=== PATIENT | female | born 2000 | race American Indian/Alaskan Native ===

== ENCOUNTER 2020-11-03 04:05 | Inpatient (IN) | payer MEDICAID ==
[2020-11-03] MEDS ORDERED: ePHEDrine SULFATE 50 MG/1 ML INJ IV PRN (04:56)
[2020-11-03] MEDS ORDERED: MINERAL OIL 30 ML ORAL LIQD PO PRN (04:56)
[2020-11-03] MEDS ORDERED: TERBUTALINE 1 MG/1 ML INJ SUB-Q PRN (04:56)
[2020-11-03] MEDS ORDERED: AMPICILLIN/NS 2 GM/100 ML 2 GM/100 ML BAG IV ONE (04:56)
[2020-11-03] MEDS ORDERED: MAGNESIUM SULFATE 4 GM/100 ML BAG IV ONE (04:56)
[2020-11-03] MEDS ORDERED: NALOXONE 0.4 MG/1 ML INJ IV PRN (04:56)
[2020-11-03] MEDS ORDERED: hydrALAZINE 20 MG/1 ML INJ IV PRN (04:56)
[2020-11-03] MEDS ORDERED: ONDANSETRON 4 MG/2 ML INJ IV PRN (04:56)
[2020-11-03] MEDS ORDERED: miSOPROStol 200 MCG TAB PR PRN (04:56)
[2020-11-03] MEDS ORDERED: BUTORPHANOL 2 MG/1 ML INJ IV PRN (04:56)
[2020-11-03] MEDS ORDERED: LIDOCAINE (2%) 20 MG/1 ML VIAL 20 ML MDV INFILTRATI ONE ×2 (04:56→09:35)
[2020-11-03] MEDS ORDERED: MAGNESIUM SULFATE 40GM/1000ML 40 GM/1,000 ML BAG IV SCH (05:00)
[2020-11-03] MEDS ORDERED: OXYTOCIN DRIP 30 UNITS/500 ML BAG IV SCH ×2 (05:00)
[2020-11-03] MEDS ORDERED: LACTATED RINGERS 1,000 ML IV SCH ×2 (05:00)
[2020-11-03] MEDS ORDERED: CALCIUM GLUCONATE 1000 MG/10 ML INJ IV ONE (05:00)
[2020-11-03 05:29] LABS: Hematocrit 39.8 % (30.3-42.9); Hemoglobin 13.3 gm/dl (10.1-14.3); Mean Corpuscular HGB Conc 34 % (30-34); Mean Corpuscular Volume 90 fl (79-97); Platelet Count 178 K/mm3 (140-440); Red Blood Count 4.43 M/mm3 (3.65-5.03); Red Cell Distribution Width 13.1 % (13.2-15.2)
[2020-11-03 05:58] LABS: Alanine Aminotransferase 15 units/L (7-56); Uric Acid 5.4 mg/dL (3.5-7.6)
[2020-11-03 07:06] LABS: Bilirubin,Urine NEG (Negative); Blood,Urine SM (Negative); Color,Urine Straw (Yellow); Mucus,Urine FEW /HPF; Urobilinogen,Urine < 2.0 mg/dL (<2.0)
[2020-11-03] MEDS: fentaNYL 100 MCG/2 ML INJ IV PRN ×2 (07:16→10:26)
[2020-11-03] MEDS ORDERED: AMPICILLIN/NS 1 GM/50 ML 1 GM/50 ML BAG IV SCH (08:58)
--- NOTE | 2020-11-03 10:51 | History and Physical Report ---
History of Present Illness Date of examination: 11/03/20 Date of admission: 11/03/20 04:57 Chief complaint: My water broke History of present illness: Patient is a 20-year-old 1 para 0 who presents at 39-6/7 weeks with complaint of rupture of membranes and active labor patient was found to be grossly ruptured and is 3 cm dilated. Her course was complicated by a transfer of care to [facility] at 19 weeks. She is GBS positive. On admission today she is found to have elevated blood pressures. 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 Family/Genetic History: none Social history: single - Obstetrical History Expected Date of Delivery: 11/04/20 Actual Gestation: 39 Week(s) 6 Day(s) : 1 Number of Living Children: 0 Medications and Allergies Allergies Allergy/AdvReac Type Severity Reaction Status Date / Time No Known Allergies Allergy Verified 11/03/20 05:05 Home Medications Medication Instructions Recorded Confirmed Last Taken Type Vit-Fe Fumar-FA [ 1 tab PO QDAY 11/03/20 11/03/20 11/02/20 18:00 History Vitamin] Active Meds: Active Medications Butorphanol Tartrate (Stadol) 2 mg IV Q2H PRN PRN Reason: Pain , Severe (7-10) Ephedrine Sulfate (Ephedrine Sulfate) 10 mg IV Q2M PRN PRN Reason: Hypotension Fentanyl (Sublimaze) 100 mcg IV Q2H PRN PRN Reason: Pain,Severe (7-10) LABOR PAIN Last Admin: 11/03/20 10:26 Dose: 100 mcg Documented by: Hydralazine HCl (Apresoline) 5 mg IV Q30MIN PRN PRN Reason: Hypertension Last Admin: 11/03/20 09:25 Dose: 5 mg Documented by: Oxytocin/Sodium Chloride (Pitocin/Ns 30 Unit/500ml) 30 units in 500 mls @ 2 mls/hr IV TITR KELVIN; Protocol Last Titration: 11/03/20 08:41 Dose: 4 ml/hr, 4 mls/hr Documented by: Lactated Ringer's (Lactated Ringers) 1,000 mls @ 125 mls/hr IV DIRECT KELVIN Last Admin: 12/07/20 05:31 Dose: 125 mls/hr Documented by: Oxytocin/Sodium Chloride (Pitocin/Ns 30 Unit/500ml) 30 units in 500 mls @ 40 mls/hr IV TITR KELVIN; Protocol Ampicillin Sodium (Ampicillin/Ns 1 Gm/50 Ml) 1 gm in 50 mls @ 100 mls/hr IV Q4HR KELVIN; Protocol Last Admin: 11/03/20 09:01 Dose: 100 mls/hr Documented by: Magnesium Sulfate (Magnesium Sulfate 40gm/1000ml) 40 gm in 1,000 mls @ 50 mls/hr IV DIRECT KELVIN Last Admin: 11/03/20 06:05 Dose: 2 gm/hr, 50 mls/hr Documented by: Mineral Oil (Mineral Oil) 30 ml PO QHS PRN PRN Reason: Constipation Misoprostol (Cytotec) 800 mcg NV ONCE PRN PRN Reason: Uterine Bleeding Naloxone HCl (Naloxone) 0.1 mg IV Q2MIN PRN PRN Reason: Res Rate </= 8 or 02 SAT < 92% Ondansetron HCl (Zofran) 4 mg IV Q8H PRN PRN Reason: Nausea And Vomiting Terbutaline Sulfate (Brethine) 0.25 mg SUB-Q ONCE PRN PRN Reason: Hyperstimulation/Hypertonicity Review of Systems All systems: negative Constitutional: fatigue Genitourinary: leakage of fluid, contractions - Vital Signs Vital signs: Vital Signs Pulse BP 63 186/105 11/03/20 04:37 11/03/20 04:37 Temp Pulse Resp BP Pulse Ox 99.2 F 109 H 18 133/66 100 11/03/20 04:38 11/03/20 10:41 11/03/20 04:38 11/03/20 10:41 11/03/20 10:41 - Physical Exam Breasts: Positive: deferred Cardiovascular: Regular rate, Normal S1, Normal S2 Lungs: Positive: Clear to auscultation, Normal air movement Abdomen: Positive: normal appearance, soft, normal bowel sounds Genitourinary (Female): Positive: normal external genitalia, normal perenium Vulva: both: normal Vagina: Positive: normal moisture Uterus: Positive: normal size, normal contour Extremities: Positive: normal - Obstetrical Cervical Dilatation: 3 Cervical Effacement Percentage: 80 station: 1 Uterine Contraction Pattern: Irregular Uterine Tone Measurement Phase: Contraction Uterine Contraction Intensity: Moderate Results Result Diagrams: 11/03/20 05:10 11/03/20 05:10 Abnormal lab results 11/03/20 11/03/20 Range/Units 05:10 05:10 WBC 11.8 H (4.5-11.0) K/mm3 RDW 13.1 L (13.2-15.2) % Lactate Dehydrogenase 343 H (91-180) units/L All other labs normal. Assessment and Plan IUP at 39-6/7 weeks with spontaneous rupture of membranes and active labor. Will admit for labor and elevated blood pressure. We will begin magnesium for seizure prophylaxis and pitocin for contractions. Pt may have epidural when desires. Anticipate .
[2020-11-03] MEDS ORDERED: PROMETHAZINE 25 MG RECT SUPP PR PRN (11:14)
[2020-11-03] MEDS ORDERED: BENZOCAINE/MENTHOL 20/0.5% TOP SPRAY 56 GM TP PRN (11:14)
[2020-11-03] MEDS ORDERED: diphenhydrAMINE 25 MG CAP PO PRN (11:14)
[2020-11-03] MEDS ORDERED: MAGNESIUM HYDROXIDE (MOM) ORAL LIQD UDC PO PRN (11:14)
[2020-11-03] MEDS ORDERED: WITCH HAZEL/ GLYCERIN PAD TP PRN (11:14)
[2020-11-03] MEDS ORDERED: LANOLIN/ZINC/DIMETHICONE (LANSINOH) 7 GM TP PRN (11:14)
--- NOTE | 2020-11-03 11:14 | Procedure Note ---
OB Delivery Note - Delivery Date of Delivery: 11/03/20 Surgeon: RIKY CHAHAL Estimated blood loss: other (400cc) - Vaginal Delivery presentation: vertex Delivery position: OA Intrapartum events: PROM->1hr before delivery, meconium (light), preeclampsia Delivery induction: none Delivery augmentation: pitocin Delivery monitor: external FHT, external uterine Route of delivery: Delivery placenta: spontaneous Delivery cord: 3 umbilical vessels Episiotomy: none Delivery laceration: 2nd degree Delivery repair: vicryl Anesthesia: local Delivery comments: Viable female delivered over intact perineum with mouth and nose suctioned on the perineum. had spontaneous cry and was placed on maternal abdomen. Cord was clamped and cut when done pulsating. Placenta was delivered spontaneously and intact. Second-degree laceration was repaired with 2-0 Vicryl. There was excellent hemostasis at end the procedure. Weight of the was 7 pounds, 3165 g. Her Apgars were 8 and 9 - A at 1 minute: 8 at 5 minutes: 9 Gender: Female (3165 grams/ 7 pounds)
[2020-11-03] MEDS ORDERED: IBUPROFEN 600 MG TAB PO SCH (12:00)
[2020-11-03] MEDS: NIFEdipine XL 60 MG TAB PO SCH (14:33)
[2020-11-03] MEDS ORDERED: DOCUSATE SODIUM 100 MG CAP PO SCH (22:00)
[2020-11-03] MEDS: HYDROcodone/ACETAMINOPHEN 5-325 MG TAB PO PRN (22:55)
[2020-11-04 01:37] LABS: Hematocrit 33.8 % (30.3-42.9); Hemoglobin 11.5 gm/dl (10.1-14.3)
[2020-11-04] MEDS: HYDROcodone/ACETAMINOPHEN 5-325 MG TAB PO PRN ×2 (05:14→22:15)
[2020-11-04] MEDS ORDERED: PRENATAL VIT27-FE FUMARATE-FOLIC ACID VIT TAB PO SCH (10:00)
[2020-11-04] MEDS: NIFEdipine XL 60 MG TAB PO SCH (10:39)
--- NOTE | 2020-11-04 11:38 | Progress Note ---
Assessment and Plan PPD 1 s/p . Doing well. Plan for transfer to mother baby after magnesium stopped. Will monitor blood pressure for 24 hours. Subjective - Subjective Date of service: 11/04/20 Interval history: Patient is a 20-year-old 1 para 0 who presents at 39-6/7 weeks with complaint of rupture of membranes and active labor patient was found to be grossly ruptured and is 3 cm dilated. Her course was complicated by a transfer of care to [facility] at 19 weeks. She is GBS positive. On admission today she is found to have elevated blood pressures. [facility] labs are pending Patient reports: appetite normal, voiding normally, pain well controlled, ambulating normally : doing well Objective - Vital Signs Latest vital signs: Vital Signs Temp Pulse Resp BP BP Pulse Ox 11/04/20 11:14 98.1 F 82 18 121/82 100 11/04/20 10:40 100 H 100 11/04/20 10:35 86 100 11/04/20 10:30 95 H 100 11/04/20 10:25 84 99 11/04/20 10:20 86 100 11/04/20 10:15 82 98 11/04/20 10:10 82 104/55 99 11/04/20 10:05 86 99 11/04/20 10:00 85 97 11/04/20 09:55 85 97 11/04/20 09:50 93 H 97 11/04/20 09:45 109 H 97 11/04/20 09:40 98 H 97 11/04/20 09:35 88 98 11/04/20 09:30 105 H 100 11/04/20 09:25 81 98 11/04/20 09:20 89 99 11/04/20 09:15 83 99 11/04/20 09:10 78 107/61 99 11/04/20 09:05 86 100 11/04/20 09:00 84 98 11/04/20 08:55 79 99 11/04/20 08:50 81 100 11/04/20 08:45 81 100 11/04/20 08:40 91 H 98 11/04/20 08:38 101 H 93 11/04/20 08:35 95 H 100 11/04/20 08:30 101 H 100 11/04/20 08:25 87 99 11/04/20 08:20 91 H 100 11/04/20 08:15 86 98 11/04/20 08:10 102 H 99 11/04/20 08:05 92 H 100 11/04/20 08:02 107 H 94 11/04/20 08:00 97.6 F 102 H 18 100 11/04/20 07:55 83 99 11/04/20 07:50 84 97 11/04/20 07:45 82 97 11/04/20 07:40 89 98 11/04/20 07:35 83 97 11/04/20 07:30 86 97 11/04/20 07:25 89 98 11/04/20 07:20 88 97 11/04/20 07:15 93 H 98 11/04/20 07:10 91 H 105/54 96 11/04/20 07:05 91 H 99 11/04/20 07:00 96 H 98 11/04/20 06:55 113 H 97 11/04/20 06:50 115 H 96 11/04/20 06:45 99 H 97 11/04/20 06:40 90 97 11/04/20 06:35 102 H 97 11/04/20 06:30 97 H 95 11/04/20 06:25 95 H 96 11/04/20 06:20 95 H 96 11/04/20 06:15 107 H 97 11/04/20 06:10 97 H 104/59 96 11/04/20 06:05 97 H 96 11/04/20 06:00 95 H 96 11/04/20 05:55 98 H 96 11/04/20 05:50 102 H 97 11/04/20 05:45 113 H 99 11/04/20 05:40 99 H 99 11/04/20 05:35 102 H 100 11/04/20 05:30 99 H 100 11/04/20 05:25 104 H 99 11/04/20 05:20 95 H 100 11/04/20 05:15 101 H 100 11/04/20 05:10 99 H 121/69 100 11/04/20 05:05 93 H 100 11/04/20 05:00 89 99 11/04/20 04:55 81 100 11/04/20 04:50 81 100 11/04/20 04:45 90 99 11/04/20 04:40 85 97 11/04/20 04:35 84 97 11/04/20 04:30 84 97 11/04/20 04:25 81 98 11/04/20 04:20 77 99 11/04/20 04:15 82 98 11/04/20 04:10 80 115/65 100 11/04/20 04:05 82 99 11/04/20 04:00 83 100 11/04/20 03:55 82 99 11/04/20 03:50 83 100 11/04/20 03:45 78 100 11/04/20 03:40 87 100 11/04/20 03:35 90 100 11/04/20 03:30 102 H 98 11/04/20 03:25 116 H 97 11/04/20 03:20 92 H 97 11/04/20 03:15 86 99 11/04/20 03:10 90 118/60 99 11/04/20 03:05 87 97 11/04/20 03:00 85 99 11/04/20 02:55 87 97 11/04/20 02:50 88 98 11/04/20 02:45 85 99 11/04/20 02:40 88 98 11/04/20 02:35 88 98 11/04/20 02:30 87 97 11/04/20 02:25 87 97 11/04/20 02:20 104 H 99 11/04/20 02:15 88 98 11/04/20 02:10 85 114/63 99 11/04/20 02:05 88 99 11/04/20 02:00 87 100 11/04/20 01:55 92 H 100 11/04/20 01:50 99 H 100 11/04/20 01:45 93 H 100 11/04/20 01:40 99 H 100 11/04/20 01:35 97 H 99 11/04/20 01:30 93 H 100 11/04/20 01:25 98 H 100 11/04/20 01:20 95 H 100 11/04/20 01:15 97 H 100 11/04/20 01:10 98 H 120/80 100 11/04/20 01:05 93 H 100 11/04/20 01:00 101 H 100 11/04/20 00:55 99 H 100 11/04/20 00:50 97 H 98 11/04/20 00:45 90 98 11/04/20 00:40 91 H 99 11/04/20 00:35 91 H 99 11/04/20 00:30 90 100 11/04/20 00:25 98 H 99 11/04/20 00:20 92 H 98 11/04/20 00:15 96 H 98 11/04/20 00:10 90 113/67 100 11/04/20 00:05 93 H 99 11/04/20 00:00 90 100 11/03/20 23:55 87 100 11/03/20 23:50 95 H 100 11/03/20 23:45 96 H 100 11/03/20 23:40 95 H 100 11/03/20 23:35 101 H 100 11/03/20 23:30 102 H 100 11/03/20 23:25 91 H 100 11/03/20 23:20 99 H 100 11/03/20 23:15 93 H 100 11/03/20 23:10 108 H 126/76 100 11/03/20 23:05 96 H 100 11/03/20 23:00 95 H 100 11/03/20 22:55 96 H 100 11/03/20 22:50 99 H 100 11/03/20 22:45 95 H 100 11/03/20 22:40 95 H 98 11/03/20 22:35 98 H 100 11/03/20 22:33 107 H 94 11/03/20 22:30 107 H 100 11/03/20 22:25 105 H 100 11/03/20 22:20 100 H 100 11/03/20 22:15 103 H 99 11/03/20 22:10 95 H 121/72 100 11/03/20 22:05 102 H 99 11/03/20 22:00 98 H 100 11/03/20 21:55 100 H 100 11/03/20 21:50 105 H 100 11/03/20 21:45 98.2 F 95 H 16 121/72 100 11/03/20 21:40 98 H 99 11/03/20 21:35 105 H 99 11/03/20 21:30 109 H 100 11/03/20 21:25 109 H 100 11/03/20 21:20 107 H 100 11/03/20 21:19 116 H 85 11/03/20 21:15 117 H 100 11/03/20 21:10 110 H 114/59 98 11/03/20 21:05 100 H 98 11/03/20 21:00 103 H 99 11/03/20 20:55 102 H 99 11/03/20 20:50 105 H 100 12 20:45 105 H 100 12 20:40 118 H 100 12 20:35 106 H 100 12 20:30 102 H 100 11/03/20 20:25 107 H 100 11/03/20 20:20 114 H 100 12 20:15 107 H 100 11/03/20 20:10 109 H 123/70 100 11/03/20 20:05 117 H 100 12 20:00 116 H 100 11/03/20 19:55 101 H 100 12 19:50 108 H 100 11/03/20 19:45 113 H 100 12 19:40 112 H 100 11/03/20 19:35 105 H 99 11/03/20 19:30 109 H 100 11/03/20 19:25 105 H 100 11/03/20 19:20 106 H 99 11/03/20 19:15 103 H 100 11/03/20 19:10 106 H 118/69 100 11/03/20 19:05 108 H 100 11/03/20 19:00 106 H 100 07 18:55 101 H 100 11/03/20 18:50 104 H 100 11/03/20 18:45 105 H 100 11/03/20 18:40 101 H 100 11/03/20 18:35 105 H 100 11/03/20 18:30 105 H 100 07 18:25 104 H 100 11/03/20 18:20 118 H 100 1207 18:15 110 H 100 11/03/20 18:10 110 H 130/83 100 11/03/20 18:05 107 H 99 11/03/20 18:00 105 H 100 11/03/20 17:55 106 H 100 11/03/20 17:50 106 H 100 1207 17:45 104 H 100 1207 17:40 104 H 100 12 17:35 116 H 100 11/03/20 17:30 107 H 100 1220 17:25 103 H 100 11/03/20 17:20 109 H 100 11/03/20 17:15 99 H 100 11/03/20 17:10 109 H 142/96 100 11/03/20 17:05 104 H 100 11/03/20 17:00 103 H 100 11/03/20 16:55 102 H 100 11/03/20 16:50 99 H 100 11/03/20 16:45 100 H 100 11/03/20 16:40 109 H 100 11/03/20 16:35 114 H 100 11/03/20 16:30 99 H 100 11/03/20 16:25 104 H 100 11/03/20 16:20 101 H 100 11/03/20 16:15 100 H 100 11/03/20 16:10 109 H 134/86 100 11/03/20 16:05 101 H 100 11/03/20 16:00 99 H 100 11/03/20 15:55 102 H 100 11/03/20 15:50 95 H 100 11/03/20 15:45 102 H 100 11/03/20 15:40 111 H 99 11/03/20 15:37 98.9 F 16 11/03/20 15:35 106 H 100 11/03/20 15:30 99 H 100 11/03/20 15:25 106 H 100 11/03/20 15:20 99 H 100 11/03/20 15:15 103 H 100 11/03/20 15:10 100 H 141/87 100 11/03/20 15:05 103 H 100 11/03/20 15:00 101 H 100 11/03/20 14:55 102 H 100 11/03/20 14:50 105 H 100 11/03/20 14:45 98 H 100 11/03/20 14:40 102 H 100 11/03/20 14:35 99 H 99 11/03/20 14:30 105 H 100 11/03/20 14:25 101 H 100 11/03/20 14:20 97 H 100 11/03/20 14:15 97 H 100 11/03/20 14:10 110 H 143/93 100 11/03/20 14:05 109 H 100 11/03/20 14:00 103 H 100 11/03/20 13:55 103 H 100 11/03/20 13:50 104 H 100 11/03/20 13:45 101 H 100 11/03/20 13:40 100 H 100 11/03/20 13:35 102 H 100 11/03/20 13:30 114 H 100 11/03/20 13:25 102 H 100 11/03/20 13:20 101 H 100 11/03/20 13:15 98 H 100 11/03/20 13:10 110 H 150/78 100 11/03/20 13:05 103 H 100 11/03/20 13:00 100 H 100 11/03/20 12:55 102 H 100 11/03/20 12:50 98 H 100 11/03/20 12:45 98 H 100 11/03/20 12:40 96 H 100 11/03/20 12:35 97 H 100 11/03/20 12:30 99 H 100 11/03/20 12:25 92 H 100 11/03/20 12:20 93 H 100 11/03/20 12:15 109 H 100 11/03/20 12:10 94 H 100 11/03/20 12:09 93 H 148/69 11/03/20 12:05 97 H 100 11/03/20 12:00 94 H 100 11/03/20 11:55 92 H 100 11/03/20 11:51 93 H 100 11/03/20 11:45 99 H 100 11/03/20 11:40 100 H 100 Intake and Output 11/03/20 11/04/20 11/04/20 22:59 06:59 14:59 Output Total 2600 1300 800 Balance -2600 -1300 -800 Output: Urine 2600 1300 800 Indwelling Catheter 2600 1300 800 Other: Total, Output Amount 400 300 200 - Exam Abdomen: Present: normal appearance, soft Extremities: Present: normal - Labs Labs: Abnormal lab results 11/03/20 11/03/20 11/04/20 Range/Units 13:37 18:54 00:55 Magnesium 5.40 H 5.80 H 5.70 H (1.7-2.3) mg/dL
[2020-11-04] MEDS ORDERED: PROMETHAZINE 25 MG TAB PO PRN (11:54)
[2020-11-04] MEDS ORDERED: diphenhydrAMINE 25 MG CAP PO PRN (11:54)
[2020-11-04] MEDS ORDERED: MAGNESIUM HYDROXIDE (MOM) ORAL LIQD UDC PO PRN (11:54)
[2020-11-04] MEDS ORDERED: WITCH HAZEL/ GLYCERIN PAD TP PRN (11:54)
[2020-11-04] MEDS ORDERED: LANOLIN/ZINC/DIMETHICONE (LANSINOH) 7 GM TP PRN (11:54)
[2020-11-04] MEDS ORDERED: ONDANSETRON 4 MG/2 ML INJ IV PRN (11:54)
[2020-11-04] MEDS ORDERED: PROMETHAZINE 25 MG RECT SUPP PR PRN (11:54)
[2020-11-04] MEDS: IBUPROFEN 600 MG TAB PO SCH ×2 (12:21→18:02)
[2020-11-05 00:41] LABS: Hematocrit 31.7 % (30.3-42.9); Hemoglobin 10.7 gm/dl (10.1-14.3)
[2020-11-05] MEDS: HYDROcodone/ACETAMINOPHEN 5-325 MG TAB PO PRN (04:28)
[2020-11-05] MEDS: IBUPROFEN 600 MG TAB PO SCH ×3 (05:34→12:00)
--- NOTE | 2020-11-05 09:49 | Progress Note ---
Assessment and Plan PPD 2 s/p . Doing well. Plan for discharge on today Subjective - Subjective Date of service: 11/05/20 Interval history: Patient is a 20-year-old 1 para1 who ppd 2 from an . Doing well. Pt received magnesium for 24 hours post delivery due to severe preeclampsia Patient reports: appetite normal, voiding normally, pain well controlled : doing well Objective - Vital Signs Latest vital signs: Vital Signs Temp Pulse Resp BP BP Pulse Ox 11/05/20 08:04 98 F 81 18 120/68 100 11/05/20 01:07 98.2 F 86 20 124/76 99 11/04/20 18:02 18 11/04/20 16:05 98.2 F 97 H 18 115/72 100 11/04/20 12:21 18 11/04/20 11:14 98.1 F 82 18 121/82 100 11/04/20 10:40 100 H 100 11/04/20 10:35 86 100 11/04/20 10:30 95 H 100 11/04/20 10:25 84 99 11/04/20 10:20 86 100 11/04/20 10:15 82 98 11/04/20 10:10 82 104/55 99 11/04/20 10:05 86 99 11/04/20 10:00 85 97 11/04/20 09:55 85 97 11/04/20 09:50 93 H 97 Intake and Output 11/04/20 11/05/20 11/05/20 22:59 06:59 14:59 Intake Total 240 600 120 Balance 240 600 120 Intake: Oral 240 240 120 Intake, Free Water 360 Other: Total, Intake Amount 240 240 120 # Voids Void 2 1 - Exam Breasts: Present: deferred Cardiovascular: Present: Regular rate, Normal S1, Normal S2 Lungs: Present: Clear to auscultation, Normal air movement Abdomen: Present: normal appearance, soft, normal bowel sounds Uterus: Present: normal, firm Extremities: Present: normal
--- NOTE | 2020-11-05 09:53 | Discharge Summary ---
Providers - Providers Date of Admission: 11/03/20 04:57 Date of discharge: 11/05/20 Attending physician: RIKY CHAHAL Primary care physician: RIKY CHAHAL Hospitalization Reason for admission: active labor, rupture of membranes Delivery: Episiotomy: none Laceration: 2nd degree Other procedures: none complications: other (preeclampsia) Discharge diagnosis: IUP at term delivered [place] baby: female Hospital course: Improved to stability Condition at discharge: Good Disposition: DC-01 TO HOME OR SELFCARE - Discharge Diagnoses (1) Spontaneous rupture of amniotic membranes Status: Resolved (2) Normal vaginal delivery Status: Acute (3) Pre-eclampsia affecting childbirth Status: Resolved Plan - Discharge Medications Prescriptions: Ibuprofen [Motrin 600 MG tab] 600 mg PO Q6HR #30 tablet HYDROcodone/APAP 5-325 [[place] 5-325 mg TAB] 2 each PO Q6H PRN #20 tablet PRN Reason: Pain, Moderate (4-6) NIFEdipine XL [Procardia Xl] 60 mg PO QDAY #30 tablet - Provider Discharge Summary Activity: routine, no sex for 6 weeks, no heavy lifting 4 weeks, no strenuous exercise Diet: routine Instructions: routine Additional instructions: [] Smoking cessation referral if applicable(refer to patient education folder for contact #) [] Refer to [facility] Booklet Call your doctor immediately for: * Fever > 100.5 * Heavy vaginal bleeding ( >1 pad per hour) * Severe persistent headache * Shortness of breath * Reddened, hot, painful area to leg or breast * Drainage or odor from incision. * Keep incision clean and dry at all times and follow doctor's instructions regarding bathing/showering - Follow up plan Follow up: RIKY CHAHAL MD [Primary Care Provider] - 14 Days (For blood pressure check)
[2020-11-05] MEDS: NIFEdipine XL 60 MG TAB PO SCH (10:31)
[2020-11-05 13:49] VITALS: BP 107/63
== END 2020-11-05 13:45 | disposition home or self-care (01) | DRG 775 ==
LOC: TRG 04:05 → APU 04:07 → OBSVTOIN 04:57 → LD 04:57 → OB 11-04 11:12
PROVIDERS: ADMIT Obstetrics & Gynecology; ATTEND Obstetrics & Gynecology
PROC: 10E0XZZ Delivery of Products of Conception, External Approach (ICD-10-PCS; principal; 2020-11-03)
PROC: 0KQM0ZZ Repair Perineum Muscle, Open Approach (ICD-10-PCS; 2020-11-03)
DX: O14.14 Severe pre-eclampsia complicating childbirth (principal); O99.824 Streptococcus B carrier state complicating childbirth; Z37.0 Single live birth; Z3A.39 39 weeks gestation of pregnancy; O77.0 Labor and delivery complicated by meconium in amniotic fluid; O42.92 Full-term premature rupture of membranes, unspecified as to length of time between rupture and onset of labor; O70.1 Second degree perineal laceration during delivery
CPT/HCPCS: 36415; 81001; 82565; 83615; 83735; 84450; 84460; 84550; 85014; 85018; 85027; 86592; 86850; 86900; 86901; G0378; J0290; J0360; J2590; J3010; J3475; J7120; U0003

== ENCOUNTER 2022-08-21 14:39 | Outpatient (CLI) | payer MEDICAID ==
[2022-08-21 15:04] VITALS: BP 111/69
[2022-08-21 15:50] LABS: Bilirubin,Urine NEG (Negative); Blood,Urine NEG (Negative); Color,Urine Yellow (Yellow); Protein,Urine <15 mg/dL mg/dL (Negative)
[2022-08-21 15:56] LABS: Mucus,Urine FEW /HPF
[2022-08-21] MEDS ORDERED: ACETAMINOPHEN 500 MG TAB PO ONE (17:00)
== END 2022-08-21 17:28 | disposition home or self-care (01) ==
LOC: TRG 14:39 → APU 14:41 → TRG 17:28
PROVIDERS: ATTEND Obstetrics & Gynecology
DX: O42.913 Preterm premature rupture of membranes, unspecified as to length of time between rupture and onset of labor, third trimester (principal); Z3A.39 39 weeks gestation of pregnancy
CPT/HCPCS: 36415; 59025; 81001; 84112; Q0177

== ENCOUNTER 2022-08-24 12:47 | Inpatient (IN) | payer MEDICAID ==
[2022-08-24] MEDS ORDERED: LOPERAMIDE 2 MG CAP PO PRN (14:20)
[2022-08-24] MEDS ORDERED: miSOPROStol 200 MCG TAB PR PRN (14:20)
[2022-08-24] MEDS ORDERED: LIDOCAINE (2%) 20 MG/1 ML VIAL 20 ML MDV INFILTRATI NR (14:20)
[2022-08-24] MEDS ORDERED: METHYLERGONOVINE MALEATE 0.2 MG/ML VIAL IM PRN (14:20)
[2022-08-24] MEDS ORDERED: AMPICILLIN/NS 2 GM/100 ML 2 GM/100 ML BAG IV ONE ×2 (14:24→15:00)
--- NOTE | 2022-08-24 14:37 | History and Physical Report ---
History of Present Illness Date of examination: 08/24/22 Date of admission: 08/24/22 Chief complaint: I'm having contractions History of present illness: Pt is a 22 year old who presents at 39 week in active labor. She was seen in the office earlier today and found to be 6 cm dilated. course has been uncomplicated. She is GBS positive. Past History Past Medical History: no pertinent history Past Surgical History: no surgical history Family/Genetic History: none Social history: single - Obstetrical History Expected Date of Delivery: 08/28/22 Actual Gestation: 39 Week(s) 3 Day(s) : 2 Para: 1 Number of Living Children: 1 Medications and Allergies Allergies Allergy/AdvReac Type Severity Reaction Status Date / Time No Known Allergies Allergy Verified 08/21/22 15:20 Active Meds: Active Medications Ampicillin Sodium (Ampicillin/Ns 2 Gm/100 Ml) 2 gm in 100 mls @ 100 mls/hr IV ONCE ONE; Protocol Stop: 08/24/22 15:23 Lidocaine (Lidocaine (2%) 20 Mg/1 Ml Vial 20 Ml Mdv) 20 ml INFILTRATI ONCE ONE Stop: 08/24/22 14:21 Review of Systems All systems: negative Gastrointestinal: abdominal pain Genitourinary: contractions Rectal Exam: deferred - Vital Signs Vital signs: Vital Signs Pulse BP 80 130/78 08/24/22 13:21 08/24/22 13:21 Temp Pulse Resp BP Pulse Ox 98.8 F 108 H 18 130/78 96 08/24/22 13:53 08/24/22 14:32 08/24/22 13:53 08/24/22 13:21 08/24/22 14:32 - Physical Exam Breasts: Positive: deferred Cardiovascular: Regular rate, Normal S1, Normal S2 Lungs: Positive: Clear to auscultation, Normal air movement Abdomen: Positive: normal appearance, soft, normal bowel sounds. Negative: di stention, tenderness Genitourinary (Female): Positive: normal external genitalia, normal perenium Vulva: both: normal Vagina: Positive: normal moisture. Negative: discharge Cervix: Negative: lesion, discharge Uterus: Positive: normal size, normal contour Adnexa: both: normal Anus/Rectum: Positive: normal perianal skin, heme negative. Negative: rectal mass, hemorrhoids Extremities: Deep Tendon Reflex Grade: Normal +2 - Obstetrical FHR: auscultation normal Cervical Dilatation: 6 Cervical Effacement Percentage: 90 station: -2 Uterine Contraction Frequency (min): 2 Uterine Contraction Pattern: Regular Uterine Tone Measurement Phase: Contraction Uterine Contraction Intensity: Moderate Results Result Diagrams: 08/24/22 13:50 All other labs normal. Assessment and Plan IUP at 39 weeks in active labor from the office. Will admit for labor delivery. Patient does not want an epidural. We will AROM when able. We will treat for GBS positive status. Anticipate .
[2022-08-24] MEDS ORDERED: BUTORPHANOL 2 MG/1 ML INJ IV PRN (15:00)
[2022-08-24] MEDS ORDERED: PROMETHAZINE 25 MG RECT SUPP PR PRN ×2 (15:00→18:29)
[2022-08-24] MEDS ORDERED: OXYTOCIN 10 UNIT/1 ML INJ IM PRN (15:00)
[2022-08-24] MEDS ORDERED: fentaNYL 100 MCG/2 ML INJ IV PRN (15:00)
[2022-08-24] MEDS ORDERED: ePHEDrine SULFATE 50 MG/1 ML INJ IV PRN (15:00)
[2022-08-24] MEDS ORDERED: ONDANSETRON 4 MG/2 ML INJ IV PRN ×2 (15:00→18:29)
[2022-08-24] MEDS ORDERED: ACETAMINOPHEN 325 MG TAB PO PRN ×2 (15:00→18:29)
[2022-08-24] MEDS ORDERED: OXYTOCIN DRIP 30 UNITS/500 ML BAG IV SCH ×2 (15:00)
[2022-08-24] MEDS ORDERED: LACTATED RINGERS 1,000 ML IV SCH (15:00)
[2022-08-24] MEDS ORDERED: TERBUTALINE 1 MG/1 ML INJ SUB-Q PRN (15:00)
[2022-08-24] MEDS ORDERED: CARBOPROST TROMETHAMINE 250 MCG/1 ML INJ IM PRN (15:00)
--- NOTE | 2022-08-24 16:10 | Procedure Note ---
OB Delivery Note - Delivery Date of Delivery: 08/24/22 Surgeon: RIKY CHAHAL Estimated blood loss: 200cc - Vaginal Delivery presentation: vertex Delivery position: OA Intrapartum events: meconium Delivery augmentation: rupture of membranes Delivery monitor: external FHT, external uterine Route of delivery: Delivery placenta: spontaneous Delivery cord: 3 umbilical vessels Episiotomy: none Delivery laceration: none Anesthesia: none Delivery comments: Viable male delivered over intact perineum at 355 p.m. had no evidence nuchal cord. had spontaneous cry and was placed on maternal abdomen. Cord was clamped and cut when finished pulsating. Weight 6 pounds 15 ounces. Apgars 8/9. Placenta was delivered spontaneously and intact with three-vessel cord. Patient had no lacerations. Excellent hemostasis. Patient tolerated procedure well. - A at 1 minute: 8 at 5 minutes: 9 Infant Gender: Male (6 pounds 15 ounces)
[2022-08-24] MEDS ORDERED: KETOROLAC 30 MG/1 ML INJ ONE (16:19)
[2022-08-24 16:58] LABS: Hematocrit 30.9 % (30.3-42.9); Hemoglobin 9.7 gm/dl (10.1-14.3); Mean Corpuscular HGB Conc 32 % (30-34); Mean Corpuscular Volume 85 fl (79-97); Platelet Count 223 K/mm3 (140-440); Red Blood Count 3.62 M/mm3 (3.65-5.03); Red Cell Distribution Width 13.8 % (13.2-15.2)
[2022-08-24] MEDS ORDERED: HYDROcodone/ACETAMINOPHEN 5-325 MG TAB PO PRN (17:00)
[2022-08-24] MEDS ORDERED: KETOROLAC 30 MG/1 ML INJ IV ONE (18:00)
[2022-08-24] MEDS ORDERED: LANOLIN/ZINC/DIMETHICONE (LANSINOH) 7 GM TP PRN (18:29)
[2022-08-24] MEDS ORDERED: MAGNESIUM HYDROXIDE (MOM) ORAL LIQD UDC PO PRN (18:29)
[2022-08-24] MEDS ORDERED: WITCH HAZEL/ GLYCERIN PAD TP PRN (18:29)
[2022-08-24] MEDS ORDERED: PROMETHAZINE 25 MG TAB PO PRN (18:29)
[2022-08-24] MEDS ORDERED: AMPICILLIN/NS 1 GM/50 ML 1 GM/50 ML BAG IV SCH (19:00)
[2022-08-24] MEDS: oxyCODONE /ACETAMINOPHEN 5-325MG TAB PO PRN (19:55)
[2022-08-24] MEDS ORDERED: MINERAL OIL 30 ML ORAL LIQD PO PRN (22:00)
[2022-08-24] MEDS: IBUPROFEN 800 MG TAB PO SCH (23:34)
[2022-08-24] MEDS: DOCUSATE SODIUM 100 MG CAP PO SCH (23:35)
[2022-08-25] MEDS: oxyCODONE /ACETAMINOPHEN 5-325MG TAB PO PRN ×2 (04:39→16:13)
[2022-08-25 05:40] LABS: Hematocrit 26.4 % (30.3-42.9); Hemoglobin 8.4 gm/dl (10.1-14.3)
[2022-08-25] MEDS: IBUPROFEN 800 MG TAB PO SCH ×2 (06:25→11:56)
[2022-08-25] MEDS: DOCUSATE SODIUM 100 MG CAP PO SCH (11:55)
[2022-08-25] MEDS: PRENATAL VIT27-FE FUMARATE-FOLIC ACID VIT TAB PO SCH (11:56)
[2022-08-25] MEDS: HYDROcodone/ACETAMINOPHEN 5-325 MG TAB PO PRN (21:57)
[2022-08-26] MEDS: diphenhydrAMINE 25 MG CAP PO PRN ×2 (02:21→10:33)
[2022-08-26] MEDS: IBUPROFEN 800 MG TAB PO SCH ×2 (02:22→10:33)
[2022-08-26] MEDS: oxyCODONE /ACETAMINOPHEN 5-325MG TAB PO PRN ×2 (06:52→14:22)
--- NOTE | 2022-08-26 09:13 | Discharge Summary ---
Providers - Providers Date of Admission: 08/24/22 14:25 Attending physician: RIKY CHAHAL Primary care physician: RIKY CHAHAL Hospitalization Reason for admission: active labor Delivery: Episiotomy: none Laceration: none Other procedures: none complications: none Discharge diagnosis: IUP at term delivered [place] baby: male Hospital course: unremarkable Condition at discharge: Good Disposition: 01 HOME / SELF CARE / HOMELESS Plan - Discharge Medications Prescriptions: Ferrous Sulfate [Feosol 325 MG tab] 325 mg PO BID #60 tablet Ibuprofen [Motrin] 800 mg PO Q8HR PRN #40 tablet PRN Reason: Pain, Moderate (4-6) HYDROcodone/APAP 5-325 [[place] 5/325] 1 each PO Q6HR PRN #15 tablet PRN Reason: Pain - Provider Discharge Summary Activity: routine, no sex for 6 weeks, no heavy lifting 4 weeks, no strenuous exercise Diet: routine Instructions: routine Additional instructions: [] Smoking cessation referral if applicable(refer to patient education folder for contact #) [] Refer to [facility] Booklet Call your doctor immediately for: * Fever > 100.5 * Heavy vaginal bleeding ( >1 pad per hour) * Severe persistent headache * Shortness of breath * Reddened, hot, painful area to leg or breast * Drainage or odor from incision. * Keep incision clean and dry at all times and follow doctor's instructions regarding bathing/showering - Follow up plan Follow up: RIKY CHAHAL MD [Primary Care Provider] - 7 Days Forms: [facility] Discharge Summary
[2022-08-26] MEDS: DOCUSATE SODIUM 100 MG CAP PO SCH (09:35)
[2022-08-26] MEDS: PRENATAL VIT27-FE FUMARATE-FOLIC ACID VIT TAB PO SCH (09:35)
[2022-08-26 18:09] VITALS: BP 110/61
[2022-08-26] MEDS ORDERED: MEASLES, MUMPS & RUBELLA 12,500 UNIT/0.5 ML VACCINE SUB-Q ONE (18:22)
[2022-08-26] MEDS: HYDROcodone/ACETAMINOPHEN 5-325 MG TAB PO PRN (18:33)
== END 2022-08-26 18:47 | disposition home or self-care (01) | DRG 775 ==
LOC: TRG 12:47 → LD 12:48 → TRG 14:39 → OB 17:43
PROVIDERS: ADMIT Obstetrics & Gynecology; ATTEND Obstetrics & Gynecology
PROC: 3E0134Z Introduction of Serum, Toxoid and Vaccine into Subcutaneous Tissue, Percutaneous Approach (ICD-10-PCS; principal; 2022-08-24)
PROC: 10E0XZZ Delivery of Products of Conception, External Approach (ICD-10-PCS; 2022-08-26)
DX: O99.824 Streptococcus B carrier state complicating childbirth (principal); Z20.822 Contact with and (suspected) exposure to COVID-19; Z3A.39 39 weeks gestation of pregnancy; Z37.0 Single live birth; Z23 Encounter for immunization; O77.0 Labor and delivery complicated by meconium in amniotic fluid
CPT/HCPCS: 36415; 59025; 81001; 84112; 85014; 85018; 85027; 86850; 86900; 86901; 90707; G0378; J0290; J1885; J2590; J3010; J7120; Q0177; U0003